=== PATIENT | female | born 1930 | race Caucasian/White ===

== ENCOUNTER 2017-02-02 11:05 | Observation (INO) | payer MEDICARE, BC ==
[~2017-02-02] VITALS: Ht 162.6 cm; Wt 61.4 kg
[2017-02-02 02:00] VITALS: BP 139/68
[~2017-02-02 11:05] MED LIST: ASPIRIN EC81 M1 PO; ATIVAN0.5 MG PO; FLORINEF 0.1 M0.1 MG PO; NEURONTIN600 MG PO; PLAVIX75 MG PO; PREDNISONE10 MG PO; SYNTHROID75 MCG PO
[2017-02-02 11:28] LABS: BASOPHILS 0.4 % (0.0-2.0); HEMATOCRIT 36.2 % (36.0-48.0); HEMOGLOBIN 11.5 g/dL (12-16); IMMATURE GRANULOCYTES 0.3 % (0-5); LYMPHOCYTES 17.3 % (15-50); MCH 31.3 pg (26.0-34.0); MCHC 31.8 g/dL (31.0-37.0); MCV 98.6 fL (80.0-100.0); MONOCYTES 10.4 % (2-11); NEUTROPHILS 68.6 % (40-80); PLATELET COUNT 204 10x3/uL (130-400); RBC 3.67 10x6/uL (4.00-5.40); RDW 12.4 % (11.5-14.5); WBC 7.8 10x3/uL (4.8-10.8)
[2017-02-02 11:45] LABS: ALBUMIN 3.5 g/dL (3.4-5.0); ALKALINE PHOSPHATASE 92 U/L (46-116); ALT (SGPT) 15 U/L (10-68); CALC OSMOLALITY 289 mosm/kg (275-300); CALCIUM 8.6 mg/dL (8.5-10.1); CARBON DIOXIDE 25.7 mmol/L (21.0-32.0); CHLORIDE - SERUM 109 mmol/L (98-107); CREATININE - SERUM 1.5 mg/dL (0.6-1.3); GLUCOSE 105 mg/dL (74-106); POTASSIUM - SERUM 5.5 mmol/L (3.5-5.1); PROTEIN - SERUM 6.6 g/dL (6.4-8.2); SODIUM 143 mmol/L (136-145); UREA NITROGEN 26 mg/dL (7-18); eGFR NON AFRICAN AMERICAN 35 mL/min (90-120)
[2017-02-02 11:59] LABS: CHOL - HDL RATIO 3.6 ratio (2.3-4.1); CHOLESTEROL, TOTAL 191 mg/dL (0-200); CREATINE KINASE 92 UL (21-215); HDL CHOLESTEROL 53 mg/dL (32-96); LDL CHOLESTEROL 118 mg/dL (0-100); LDL-HDL RATIO 2.2 ratio (1.5-3.5)
[2017-02-02 12:00] LABS: TRIGLYCERIDE 101 mg/dL (30-200); TROPONIN-I < 0.017 ng/mL (0.000-0.060)
--- NOTE | 2017-02-02 13:59 | NUR ---
TRANSFER FROM ER BY STRETCHER. OREINTED TO ROOM. CALL LIGHT IN REACH. WILL CONT. PLAN OF CARE.
[2017-02-02 14:17] VITALS: BP 152/88; Ht 162.6 cm; Wt 61.4 kg
[2017-02-02] MEDS ORDERED: NEURONTIN 300300 MG PO (14:38)
[2017-02-02] MEDS ORDERED: LEVOTHYROXINE50 MCG PO (14:40)
[2017-02-02] MEDS ORDERED: ULTRAM50 MG PO (14:42)
[2017-02-02] MEDS ORDERED: NITROSTAT0.4 MG SL (14:43)
--- NOTE | 2017-02-02 20:00 | NUR ---
RESTING IN BED. ALERT/ORIENTED. SR PER TELEMETRY. O2 @ 2L/NC. SALINE LOCK TO LFA. SEE SHIFT ASSESSMENT. CPOC.
--- NOTE | 2017-02-02 21:00 | NUR ---
SPOKE WITH DR ELIZABETH AND ORDERS TO CONTINUE MT MEDS. KEEP NPO FOR TONIGHT, BUT PROBABLY WILL NOT CATH IN AM. NEW ORDERS SUBMITTED TO PHARMACY.
--- NOTE | 2017-02-02 22:01 | NUR ---
BEDTIME MEDS GIVEN. NEURONTIN/ATIVAN FOR RESTLESSNESS/NERVOUSNESS AND ULTRAM FOR GENERALIZED DISCOMFORT. REVIEWED PLAN OF CARE. LAB CURRENTLY IN ROOM COLLECTING BLOOD FOR CARDIAC ENZYMES.
[2017-02-03] VITALS: BP 110/72
[2017-02-03 04:00] VITALS: BP 147/66
--- NOTE | 2017-02-03 07:30 | NUR ---
RECEIVED PT IN BED EYES CLOSED RESP UNLABORED SKIN W/D COLOR WNL NAD NOTED
[2017-02-03 07:48] VITALS: BP 153/65
[2017-02-03] MEDS ORDERED: ISOSORBIDE MONO30 M1 PO (08:53)
--- NOTE | 2017-02-03 10:30 | NUR ---
DCD SALINE LOCK TO LFA WITH 20 GA IV CATHETER INTACT NO REDNESS OR EDEMA NOTED PT TOLERATED WELL
--- NOTE | 2017-02-03 11:44 | NUR ---
PT DISCHARGED HOME IN STABLE CONDITION LEFT UNIT VIA W/C WITH ALL PERSONAL BELONGINGS
== END 2017-02-03 11:44 | disposition home or self-care (01) ==
LOC: D.ER 11:05 → D.M2 13:40 → OBSVTIME 13:41 → D.M2 02-03 11:44
PROVIDERS: Family Medicine; ADMIT Internal Medicine Cardiovascular Disease
DX: I25.110 Atherosclerotic heart disease of native coronary artery with unstable angina pectoris (principal); Z86.73 Personal history of transient ischemic attack (TIA), and cerebral infarction without residual deficits; I10 Essential (primary) hypertension; Z95.5 Presence of coronary angioplasty implant and graft

== ENCOUNTER → 2017-07-04 09:12 | Outpatient (CLI) | payer MEDICARE, BC ==
[2017-02-02 14:17] VITALS: BMI 23.2
[~2017-07-04 09:12] MED LIST changes: +ISOSORBIDE MONO30 M1 PO; +LEVOTHYROXINE50 MCG PO; +NEURONTIN 300300 MG PO; +NITROSTAT0.4 MG SL; +ULTRAM50 MG PO
== END | disposition home or self-care (01) ==
LOC: D.US 09:12
DX: M79.605 Pain in left leg (principal); M79.604 Pain in right leg